=== PATIENT | female | born 1990 | race Caucasian/White ===

== ENCOUNTER 2018-07-01 07:30 | Inpatient (IN) | payer MEDICAID, OTHER ==
[2018-07-03] MEDS ORDERED: LACTATED RINGERS 2,000 ML ONE (10:02)
[2018-07-03] MEDS ORDERED: REGLAN IV SCH (10:21)
[2018-07-03] MEDS ORDERED: PEPCID IV SCH (10:21)
[2018-07-03] MEDS ORDERED: BICITRA PO SCH (10:21)
[2018-07-03] MEDS: LACTATED RINGERS 1,000 ML IV SCH ×4 (10:30→21:57)
[2018-07-03 10:37] LABS: Basophils % (Auto) 0.4 % (0.0-1.8); Eosinophils % (Auto) 0.6 % (0.0-4.3); Hematocrit 41.1 % (30.3-42.9); Hemoglobin 14.2 gm/dl (10.1-14.3); Lymphocytes # (Auto) 1.4 K/mm3 (1.2-5.4); Lymphocytes % (Auto) 19.7 % (13.4-35.0); Mean Corpuscular HGB Conc 35 % (30-34); Mean Corpuscular Volume 94 fl (79-97); Monocytes # (Auto) 0.4 K/mm3 (0.0-0.8); Platelet Count 158 K/mm3 (140-440); Red Blood Count 4.35 M/mm3 (3.65-5.03); Red Cell Distribution Width 12.7 % (13.2-15.2)
[2018-07-03] MEDS ORDERED: PITOCin/NS 20 UNIT/1000ML DRIP 20 UNITS/1,000 ML BAG IV SCH ×2 (11:00→14:00)
[2018-07-03] MEDS ORDERED: ANCEF/STERILE WATER 2 GM/20 ML 2 GM/20 ML SYRINGE IV NR (11:00)
--- NOTE | 2018-07-03 11:22 | History and Physical Report ---
History of Present Illness Date of examination: 07/03/18 Date of admission: 07/03/18 09:15 Chief complaint: Di/Di twin gestationnot in labor. malpresentation, for C/section. History of present illness: Patient is a 27 year old , LMP 10/13/17, eDC 07/20/18 at 37 weeks and 4 days gestation who is admitted for primary C/section due to malpresentati on (baby A is breech). She denies any contractions, fluid leakage or bleeding. She reports good movement. tracing is CAT for both babies. Past History Past Surgical History: no surgical history Family/Genetic History: none - Obstetrical History Expected Date of Delivery: 07/20/18 Actual Gestation: 37 Week(s) 4 Day(s) : 2 Para: 1 Number of Living Children: 1 #1 Infant Gender: Female year: 18 Birthweight: 3.175 kg Method of Delivery: Vaginal Gestational age at delivery: 40 Complications: none Medications and Allergies Allergies Allergy/AdvReac Type Severity Reaction Status Date / Time No Known Allergies Allergy Verified 07/03/18 10:21 Home Medications Medication Instructions Recorded Confirmed Last Taken Type Pnv No.95/Ferrous Fum/Folic AC 1 tab PO DAILY 07/03/18 07/03/18 07/02/18 History [ Formula Tablet] Active Meds: Active Medications Citric Acid/Sodium Citrate (Bicitra) 30 ml PO ONCE SONIA Stop: 07/03/18 23:00 Famotidine (Pepcid) 20 mg IV ONCE SONIA Stop: 07/03/18 23:22 Cefazolin Sodium (Ancef/Sterile Water 2 Gm/20 Ml) 2 gm in 20 mls @ 80 mls/hr IV PREOP NR; Protocol Stop: 07/03/18 23:00 Lactated Ringer's (Lactated Ringers) 1,000 mls @ 2,250 mls/hr IV PREOP SONIA Stop: 07/04/18 11:27 Last Admin: 07/03/18 11:07 Dose: 2,250 mls/hr Documented by: Oxytocin/Sodium Chloride (Pitocin/Ns 20 Unit/1000ml Drip) 20 units in 1,000 mls @ 0 mls/hr IV TITR SONIA Metoclopramide HCl (Reglan) 10 mg IV ONCE SONIA Stop: 07/03/18 23:22 - Vital Signs Vital signs: Vital Signs Temp Resp 98.1 F 18 07/03/18 10:27 07/03/18 10:27 Temp Pulse Resp BP Pulse Ox 98.1 F 72 18 117/72 07/03/18 10:27 07/03/18 10:42 07/03/18 10:27 07/03/18 10:42 - Physical Exam Cardiovascular: Normal S1, Normal S2 Lungs: Positive: Clear to auscultation Vulva: both: normal Adnexa: both: normal Deep Tendon Reflex Grade: Normal +2 - Obstetrical FHR: category 1 Uterine Contraction Monitor Mode: External Cervical Dilatation: 0 Cervical Effacement Percentage: 0 station: -1 Uterine Contraction Pattern: Absent Results Result Diagrams: 07/03/18 10:21 Abnormal lab results 07/03/18 Range/Units 10:21 MCH 33 H (28-32) pg MCHC 35 H (30-34) % RDW 12.7 L (13.2-15.2) % Seg Neutrophils % 73.3 H (40.0-70.0) % All other labs normal. Assessment and Plan - Patient Problems (1) 37 weeks gestation of Current Visit: Yes Status: Acute (2) Dichorionic diamniotic twin gestation Current Visit: Yes Status: Acute (3) Malpresentation of fetus, antepartum Current Visit: Yes Status: Acute Plan to address problem: Admit to labor floor. Routine pre-op labs. monitoring. IV fluid. Patient was counselled for C/section. Risks, benefits, and alternatives of the procedure were discussed in detail with the patient which included but not limited to the risk of infection, hemorrhage requiring blood transfusion, injury to the bowel or bladder and blood vessels. The patient expressed understanding, her questions were answered, and she gave informed consent. Anesthesia has been notified. Keep NPO.
[2018-07-03] MEDS ORDERED: PHENERGAN PO PRN (11:49)
[2018-07-03] MEDS ORDERED: PHENERGAN PR PRN (11:49)
[2018-07-03] MEDS ORDERED: ZOFRAN IV PRN ×2 (11:49→13:46)
[2018-07-03] MEDS ORDERED: NARCAN 0.4 MG/1 ML IV PRN ×2 (11:49→13:46)
[2018-07-03] MEDS ORDERED: SODIUM CHLORIDE FLUSH SYRINGE 10 ML IV NR (12:00)
[2018-07-03] MEDS ORDERED: SENSORCAINE/DEXTR 0.75-8.25% INFILTRATI ONE ×2 (12:02→12:16)
[2018-07-03] MEDS ORDERED: NACL 0.9% IR ONE (12:10)
[2018-07-03] MEDS ORDERED: WATER FOR IRRIG STERILE IR ONE (12:10)
[2018-07-03] MEDS ORDERED: ANCEF/STERILE WATER 2 GM/20 ML IV ONE (12:20)
[2018-07-03] MEDS ORDERED: NEO SYNEPHRINE/NS Syringe(OR USE) IV ONE (12:35)
[2018-07-03] MEDS ORDERED: METHERGINE IM ONE ×2 (13:06→13:10)
[2018-07-03] MEDS ORDERED: ASTRAMORPH PF 10MG/10ML ONE (13:18)
[2018-07-03] MEDS ORDERED: MYLICON PO PRN (13:46)
[2018-07-03] MEDS ORDERED: ANUCORT-HC PR PRN (13:46)
[2018-07-03] MEDS ORDERED: TYLENOL PO PRN (13:46)
[2018-07-03] MEDS ORDERED: MORPHINE IV PRN ×2 (13:46)
[2018-07-03] MEDS ORDERED: LANSINOH TP PRN (13:46)
[2018-07-03] MEDS ORDERED: TUCKS PAD TP PRN (13:46)
[2018-07-03] MEDS ORDERED: SENOKOT PO PRN (13:46)
[2018-07-03] MEDS ORDERED: TORADOL IV PRN (13:46)
[2018-07-03] MEDS ORDERED: SODIUM CHLORIDE FLUSH SYRINGE 10 ML IV SCH (14:00)
--- NOTE | 2018-07-03 14:11 | Anesthesia Day of Surgery ---
Anesthesia Day of Surgery - Day of Surgery Patient Examined: Yes Patient H&P Reviewed: Yes Patient is NPO: Yes
--- NOTE | 2018-07-03 14:11 | Anesthesia Consultation ---
Anesthesia Consult and Med Hx Date of service: 07/03/18 - Airway Anesthetic Teeth Evaluation: Good ROM Head & Neck: Adequate Mental/Hyoid Distance: Adequate Mallampati Class: Class II Intubation Access Assessment: Probably Good - Pre-Operative Health Status ASA Pre-Surgery Classification: ASA2 Proposed Anesthetic Plan: Epidural, Spinal - Pulmonary Hx Asthma: No - Cardiovascular System Hx Hypertension: No - Central Nervous System Hx Seizures: No Hx Psychiatric Problems: No - Endocrine Hx Renal Disease: No Hx Hypothyroidism: No Hx Hyperthyroidism: No - Hematic Hx Anemia: No Hx Sickle Cell Disease: No
--- NOTE | 2018-07-03 14:12 | Operative Report ---
Operative Report Operative Report: Preoperative diagnosis 1. IUP at 37 weeks and 4 days gestation not in labor. 2. Dichorionic diamniotic twin gestation. 3. malpresentation. Postoperative diagnosis: Same. Procedure: Primary low-transverse section. Surgeon: Dr. Denney Blind Cleaner: none Anesthesia: epidural. IVF: RL 1700 cc EBL: 800 cc Urine: 300 cc clear Complications: none. Intraoperative findings: 1. Baby A found in a felisa breech presentation, delivered at 12:59 PM, Apgars 8 at one minute and 9 at 5 minutes, weight 6 lbs. 1 oz. 2. Baby B found in a transverse LOT position, delivered at 1:01 PM, Apgars 8 at one minute and 8 at 5 minutes, weight 6 lbs 4 oz. 3. Normal fallopian tubes and ovaries bilaterally. Procedure details: Risks, benefits, and alternatives of the procedure were discussed in detail with the patient which included but not limited to the risk of infection, hemorrhage requiring blood transfusion, injury to the bowel or bladder and blood vessels. The patient expressed understanding, her questions were answered, and she gave informed consent. The patient was taken to the operating room with an IV fluid infusing Ringers lactate. In the operating room, she was placed in a sitting position and given spinal anesthesia. She was then placed in a dorsal supine position with a leftwa rd tilt. Madrigal catheter in Venodyne boots were placed. The abdomen was washed and she was prepared and draped in usual sterile fashion. After confirming adequate anesthesia, the Pfannenstiel skin incision was made in the lower abdomen about 2 cm above the pubic symphysis using the scalpel. This incision was carried down to the underlying fascia using the Bovie. The fascia was opened bilaterally in a curvilinear fashion using the Bovie. 2 straight Kocker clamps were used to grasp the upper edge of the fascia from which the underlying rectus abdominis muscles was dissected off using the Bovie. A similar procedure was done with the lower edge of the fascia to dissect the underlying rectus abdominis muscle. The muscle was bluntly from the midline by pulling. The parietal peritoneum was grasped with 2 hemostat clamps and entered sharply using Metzenbaum scissors. A quick survey of the anatomy revealed a gravid uterus, normal fallopian tubes and ovaries bilaterally. A bladder flap was created. Darwin'O retractor was placed in the incision for proper visualization. A low transverse incision was made in the lower uterine segment using the scalpel and extended bilaterally in a curvilinear fashion using bandage scissors. Baby A amniotic sac was ruptured and there was copious amount of clear amniotic fluids. The infant was found in a felisa breech presentation. The body was delivered up to the thorax and the anterior shoulder was delivered. The body was rotated to bring the posterior shoulder to an anterior position which delivered, the head was flexed and delivered atraumatically at 12:59 PM. The cord was clamped 2 and cut and the was handed off to the waiting network mgr. The infant was a female, Apgars were 8 at 1 minute and 9 at 5 minutes, weight was 6 pounds and 1 ounce. The second amniotic sac was ruptured and there copious amount of clear amniotic fluids. The was found in a transverse LOT position. The buttocks were brought to the incision and the was delivered from a felisa breech presentation in a similar manner. The was a female, Apgars were 8 at 1 minute and 8 at 5 minutes, weight 6 lbs 4 oz. Cord blood was collected for both babies. The placentae were delivered manually and they were complete with three-vessel cords. The uterine cavity was cleaned of clots and debris using dry lap sponges. The uterine incision was repaired in a running locked fashion using 0 Vicryl sutures. A second layer of imbrication was placed. The gutters were cleaned of clots and debris using dry lap sponges. After confirming adequate hemostasis, the instruments were removed from the abdominal cavity. The rectus muscle was reapproximated in an interrupted fashion using 0 Vicryl sutures. The fascia was closed in a running fashion using 0 Vicryl sutures. The skin was closed with mark anthony. Sterile dressing was placed. The counts of laps, needles, sponges, and instruments were correct 2. The patient tolerated the procedure well, she was taken to the recovery room in a stable condition.
--- NOTE | 2018-07-03 14:12 | Post Anesthesia Evaluation ---
- Post Anesthesia Evaluation Patient Participated: Yes Airway Patent: Yes Stable Respiratory Function: Yes Nausea/Vomiting: No Temp > 96.8F: Yes Pain Manageable: Yes Adequeate Hydration: Yes Anesthesia Complications: No Block Receding Appropriately: Yes Patient on Ventilator: No
[2018-07-03] MEDS ORDERED: SUBLIMAZE ONE (14:17)
[2018-07-03] MEDS: TORADOL IV PRN (17:07)
[2018-07-04] MEDS: TORADOL IV PRN ×2 (00:08→07:55)
[2018-07-04 02:04] LABS: Hematocrit 36.9 % (30.3-42.9); Hemoglobin 12.5 gm/dl (10.1-14.3)
[2018-07-04] MEDS ORDERED: AMMONIA INHALANT IH ONE ×2 (02:33→02:38)
[2018-07-04] MEDS: LACTATED RINGERS 1,000 ML IV SCH (06:00)
[2018-07-04] MEDS: PERCOCET 5/325 PO PRN ×2 (13:10→19:56)
[2018-07-04] MEDS: FEOSOL PO SCH (13:10)
[2018-07-04] MEDS: PRENATAL VITAMIN PO SCH (13:10)
[2018-07-04] MEDS: IBUPROFEN PO PRN ×2 (13:10→19:55)
--- NOTE | 2018-07-04 15:14 | Progress Note ---
Addendum entered and electronically signed by SILVIA WINKLER CNM 07/04/18 15:15: document started in error - duplicate Original Note: Subjective - Subjective Principal diagnosis: POD #1 Twins Objective - Vital Signs Latest vital signs: Vital Signs Temp Pulse Resp BP BP 07/04/18 11:31 98.8 F 18 103/63 07/04/18 07:47 101.1 F H 18 107/62 07/04/18 00:30 98.6 F 66 18 112/67 07/03/18 20:00 98.7 F 85 16 121/78 07/03/18 17:07 20 07/03/18 16:05 98.8 F 64 20 121/78 Intake and Output 07/04/18 07/04/18 07/04/18 06:59 14:59 22:59 Intake Total 1000 Output Total 650 400 Balance 350 -400 Intake: IV 1000 Lactated Ringers 1,000 ml 1000 @ 125 mls/hr IV DIRECT SONIA Rx#:[id number] Output: Urine 650 400 Indwelling Catheter 650 Void 400 Other: Total, Output Amount 650 400 # Voids Void 1
--- NOTE | 2018-07-04 15:14 | Progress Note ---
Assessment and Plan A: POD # 1 stable P: Plan discharge in am Abd binder ordered Subjective - Subjective Date of service: 07/04/18 Principal diagnosis: POD #1 Twins Patient reports: appetite normal : doing well Objective - Vital Signs Latest vital signs: Vital Signs Temp Pulse Resp BP BP 07/04/18 11:31 98.8 F 18 103/63 07/04/18 07:47 101.1 F H 18 107/62 07/04/18 00:30 98.6 F 66 18 112/67 07/03/18 20:00 98.7 F 85 16 121/78 07/03/18 17:07 20 07/03/18 16:05 98.8 F 64 20 121/78 Intake and Output 07/04/18 07/04/18 07/04/18 06:59 14:59 22:59 Intake Total 1000 Output Total 650 400 Balance 350 -400 Intake: IV 1000 Lactated Ringers 1,000 ml 1000 @ 125 mls/hr IV DIRECT SONIA Rx#:[id number] Output: Urine 650 400 Indwelling Catheter 650 Void 400 Other: Total, Output Amount 650 400 # Voids Void 1 - Exam Breasts: Present: deferred Cardiovascular: Present: Regular rate Lungs: Present: Clear to auscultation Abdomen: Present: soft Uterus: Present: fundal height at umbilicus Extremities: Present: normal Deep Tendon Reflex Grade: Normal +2 Incision: Present: dressed
[2018-07-04] MEDS: MILK OF MAGNESIA PO PRN (20:58)
[2018-07-05] MEDS: PERCOCET 5/325 PO PRN ×3 (04:19→20:11)
[2018-07-05] MEDS: IBUPROFEN PO PRN ×3 (04:20→20:11)
[2018-07-05] MEDS ORDERED: BOOSTRIX IM ONE (06:00)
[2018-07-05] MEDS: PRENATAL VITAMIN PO SCH (09:51)
[2018-07-05] MEDS: FEOSOL PO SCH (09:51)
--- NOTE | 2018-07-05 10:38 | Progress Note ---
Assessment and Plan A: /postop day 2 S/P primary low transverse section for twin gestation. P: Encouraged ambulation. Anticipate discharge tomorrow. Subjective - Subjective Date of service: 07/05/18 Principal diagnosis: /postop day 2 S/P primary LTCS Interval history: /postop day 2 S/P primary low transverse section. Patient is doing well. She reports small amount of lochia. Patient is voiding without difficulty. She is ambulating well. She is tolerating a regular diet without nausea or vomiting. She is passing gas. Patient denies headache, cough, chest pain, shortness of breath, leg pain, abdominal pain, or heavy bleeding. Patient reports: appetite normal, voiding normally, pain well controlled, flatus, ambulating normally, no dizzy ambulation, no nauseated : doing well Objective - Vital Signs Latest vital signs: Vital Signs Temp Pulse Resp BP Pulse Ox 07/05/18 08:25 97.9 F 73 18 114/64 98 07/05/18 00:30 98.2 F 68 18 96/62 97 07/04/18 16:45 97.7 F 78 18 106/70 07/04/18 11:31 98.8 F 18 103/63 Intake and Output 07/04/18 07/05/18 07/05/18 23:59 07:59 15:59 Other: Voiding Method Toilet - Exam Cardiovascular: Present: Regular rate, Normal S1, Normal S2, No murmurs Lungs: Present: Clear to auscultation, Normal air movement Abdomen: Present: normal appearance, soft, normal bowel sounds. Absent: distention, tenderness, guarding, rigidity Uterus: Present: normal, firm, fundal height below umbilicus. Absent: bogginess, tenderness Extremities: Present: normal. Absent: tenderness, edema Incision: Present: normal, dry, intact, dressed
[2018-07-05] MEDS: MILK OF MAGNESIA PO PRN (22:58)
[2018-07-06] MEDS: IBUPROFEN PO PRN ×2 (04:17→12:40)
[2018-07-06] MEDS: PERCOCET 5/325 PO PRN ×2 (04:17→12:40)
[2018-07-06] MEDS: PRENATAL VITAMIN PO SCH (12:40)
[2018-07-06] MEDS: FEOSOL PO SCH (12:40)
--- NOTE | 2018-07-06 14:40 | Progress Note ---
Assessment and Plan A: /postop day 3 S/P primary low transverse section. P: Discharge patient home today. /postop discharge instructions and warning signs discussed in detail with patient. Care of incision and activity restrictions discussed with patient. Advised patient to continue taking her vitamins at home. has left Rx on chart for patient; instructed patient to take these with her at hospital discharge. Advised patient to avoid intercourse, lifting and heavy housework, driving, stair climbing, tub baths (patient may take showers). Advised patient to call the [facility] in the morning and schedule a 1 week follow up appointment for incision check/staple removal. Patient voiced understanding of all instructions. Subjective - Subjective Date of service: 07/06/18 Principal diagnosis: /postop day 3 S/P primary LTCS Interval history: /postop day 3 S/P primary low transverse section for twin gestation with malpresentation. Patient is doing well. She reports small amount of lochia. Patient is voiding without difficulty. She is ambulating well. She is tolerating a regular diet without nausea or vomiting. She is passing gas. Patient denies headache, cough, chest pain, shortness of breath, dizziness, leg pain, abdominal pain, heavy bleeding, or any other problems. Patient reports: appetite normal, voiding normally, pain well controlled, flatus, ambulating normally, no dizzy ambulation, no nauseated [place]: doing well Objective - Vital Signs Latest vital signs: Vital Signs Temp Pulse Resp BP BP Pulse Ox 07/06/18 08:22 98.2 F 60 18 101/56 97 07/06/18 01:30 98 F 66 18 90/57 97 07/05/18 17:25 97.6 F 84 18 127/75 99 Intake and Output 07/05/18 07/06/18 07/06/18 23:59 07:59 15:59 Intake Total 360 Balance 360 Intake: Intake, Free Water 360 Other: # Voids Indwelling Catheter 2 - Exam Cardiovascular: Present: Regular rate, Normal S1, Normal S2 Lungs: Present: Clear to auscultation Abdomen: Present: normal appearance, soft, normal bowel sounds. Absent: distention, tenderness, guarding, rigidity Uterus: Present: normal, firm, fundal height below umbilicus. Absent: bogginess, tenderness Extremities: Present: normal. Absent: tenderness, edema Incision: Present: normal, dry, intact
--- NOTE | 2018-07-06 14:44 | Discharge Summary ---
Providers - Providers Date of Admission: 07/03/18 09:15 Date of discharge: 07/06/18 Attending physician: OPAL FELIX MD None Primary care physician: OPAL FELIX MD Hospitalization Reason for admission: section Delivery: Procedure: primary low transverse Incision: normal, dry, intact Other procedures: none complications: none Discharge diagnosis: IUP at term delivered [place] baby: twins Pertinent studies: Labs Hospital course: Normal hospital course. Condition at discharge: Good Disposition: DC-01 TO HOME OR SELFCARE - Discharge Diagnoses (1) Term delivered Status: Acute Plan - Discharge Medications Prescriptions: Ibuprofen [Motrin] 800 mg PO Q8HR PRN #30 tablet PRN Reason: Pain, Moderate (4-6) oxyCODONE /ACETAMINOPHEN [Percocet 5/325] 1 tab PO Q4HR #14 tab - Provider Discharge Summary Activity: routine, no sex for 6 weeks, no heavy lifting 4 weeks, no strenuous exercise Diet: routine Instructions: routine Additional instructions: Call your doctor immediately for: * Fever > 100.5 * Heavy vaginal bleeding ( >1 pad per hour) * Severe persistent headache * Shortness of breath * Reddened, hot, painful area to leg or breast * Drainage or odor from incision. * Keep incision clean and dry at all times and follow doctor's instructions regarding bathing/showering - Follow up plan Follow up: OPAL FELIX MD [Primary Care Provider] - 7 Days
[2018-07-06 16:31] VITALS: BP 109/66
== END 2018-07-06 16:00 | disposition home or self-care (01) | DRG 788 ==
LOC: APU 07-03 09:15 → OB 07-03 15:28
PROVIDERS: ADMIT Obstetrics & Gynecology; ATTEND Obstetrics & Gynecology
PROC: 10D00Z1 Extraction of Products of Conception, Low, Open Approach (ICD-10-PCS; principal; 2018-07-03)
PROC: 3E0234Z Introduction of Serum, Toxoid and Vaccine into Muscle, Percutaneous Approach (ICD-10-PCS; 2018-07-05)
DX: O32.1XX1 Maternal care for breech presentation, fetus 1 (principal); O32.2XX2 Maternal care for transverse and oblique lie, fetus 2; O30.043 Twin pregnancy, dichorionic/diamniotic, third trimester; Z3A.37 37 weeks gestation of pregnancy; Z37.2 Twins, both liveborn; Z23 Encounter for immunization
CPT/HCPCS: 36415; 85014; 85018; 85025; 86850; 86900; 86901; 88307; 90471; 90715; 96360; 96361; 96374; 96375; G0378; A6250; J0690; J1885; J2210; J2274; J2370; J2590; J2765; J3010; J7120